=== PATIENT | female | born 1985 | race Hispanic/Latino ===

== ENCOUNTER 2019-07-04 09:00 | Inpatient (IN) | payer MEDICAID ==
[~2019-07-04] VITALS: Ht 149.9 cm; Wt 75.7 kg
[2019-07-09 09:27] LABS: HEMATOCRIT 36.8 % (36-48); MEAN CORPUSCULAR HEMOGLOBIN 29.6 pg (27.0-33.0); MEAN CORPUSCULAR HGB CONC 34.2 g/dL (32.0-36.0); MEAN CORPUSCULAR VOLUME 86.5 fL (79-99); PLATELET COUNT (AUTO) 183 K/uL (130-400); RED BLOOD CELL COUNT(AUTO) 4.25 MIL/uL (4.00-5.50); WHITE BLOOD COUNT (AUTO) 6.6 K/uL (4.8-10.8)
[2019-07-10] VITALS (12 sets, daily range): BP systolic 112–129; BP diastolic 62–86
[2019-07-10] MEDS ORDERED: LACTATED RINGERS 1000ML 1,000 ML IV SCH (05:45)
[2019-07-10] MEDS ORDERED: CEFAZOLIN SODIUM 1 GM VIAL IVP PRN (05:45)
[2019-07-10 06:10] LABS: HEPATITIS Bs ANTIGEN SCREEN P Negative (Negative)
[2019-07-10] MEDS ORDERED: PHENYLEPHRINE HCL 10 MG/ML 1ML VIAL IV ONE (08:06)
[2019-07-10] MEDS ORDERED: DURAMORPH PF1 MG/ML 10ML AMP IV ONE (08:06)
[2019-07-10] MEDS ORDERED: OXYTOCIN 10 USP UNITS/ML ONE ×3 (08:07→09:07)
[2019-07-10] MEDS ORDERED: SENSORCAINE/DEXT/PF 0.75% 2ML AMP IJ ONE (08:11)
[2019-07-10] MEDS ORDERED: CEFAZOLIN SODIUM 1 GM VIAL IVP ONE (08:15)
[2019-07-10] MEDS ORDERED: EPHEDRINE SULFATE 50 MG/ML AMPULE ONE (08:19)
[2019-07-10] MEDS ORDERED: ONDANSETRON HCL 4 MG/2 ML VIAL ONE ×2 (08:24→11:07)
[2019-07-10] MEDS ORDERED: DEXAMETHASONE SOD PHOSPHATE 10MG/ML 1ML VIAL ONE (08:32)
[2019-07-10] MEDS ORDERED: DEXAMETHASONE SOD PHOSPHATE 4 MG/ML 1ML VIAL ONE (08:41)
--- NOTE | 2019-07-10 09:20 | NUR ---
RECEIVED PT FROM L&D OR VIA BED. AWAKE, ALERT, AND ORIENTED X3. WILL MONITOR.
[2019-07-10] MEDS ORDERED: OXYTOCIN-LR 20 UNITS/1000 ML 1,000 ML IV PRN (09:30)
[2019-07-10] MEDS ORDERED: PROMETHAZINE HCL 25 MG/ML 1ML AMPULE IM PRN (09:30)
[2019-07-10] MEDS ORDERED: SODIUM CHLORIDE 0.9% 10 ML VIAL IVP PRN (09:30)
[2019-07-10] MEDS ORDERED: MEPERIDINE-PF 75 MG/ML SYG IM PRN (09:30)
[2019-07-10] MEDS ORDERED: PREN-154 PO (09:51)
[2019-07-10] MEDS: DEXTROSE 5 %-0.45 % NACL 1,000 ML IV PRN ×2 (13:49→21:05)
[2019-07-10] MEDS ORDERED: DiphenhydrAMINE HCL 50 MG/ML VIAL IVP PRN (17:00)
[2019-07-10] MEDS ORDERED: ONDANSETRON HCL 4 MG/2 ML VIAL IVP PRN (17:00)
[2019-07-10] MEDS ORDERED: NALOXONE HCL 0.4 MG/1 ML ML IVP PRN ×3 (17:00)
--- NOTE | 2019-07-10 20:20 | NUR ---
ACTIVITY ABD BINDER APPLIED, ASSISTED TO SIDE OF BED, DANGLED , TOLERATED WELL, TAKING CLEAR LIQUIDS WELL Addendum: 07/11/19 at 0030 by CANELO CAMP LVN Amended: Links added.
[2019-07-11 03:36] VITALS: BP 100/75
[2019-07-11] MEDS: DEXTROSE 5 %-0.45 % NACL 1,000 ML IV PRN (03:39)
--- NOTE | 2019-07-11 04:00 | NUR ---
COMFORT C/O GENERALIZED ITCHING, MEDICATED W/BENADRYL 25 MG SLOW IV PUSH Addendum: 07/11/19 at 0411 by CANELO CAMP LVN Amended: Links added.
--- NOTE | 2019-07-11 04:26 | NUR ---
COMFORT GENERALIZED ITCHING SOMEWHAT RELIEVED Addendum: 07/11/19 at 0428 by CANELO CAMP LVN Amended: Links added.
[2019-07-11 05:24] LABS: HEMATOCRIT 25.8 % (36-48); MEAN CORPUSCULAR HEMOGLOBIN 30.1 pg (27.0-33.0); MEAN CORPUSCULAR HGB CONC 34.6 g/dL (32.0-36.0); PLATELET COUNT (AUTO) 140 K/uL (130-400); RED BLOOD CELL COUNT(AUTO) 2.97 MIL/uL (4.00-5.50); RED CELL DISTRIBUTION WIDTH 15.1 % (11.0-15.5); WHITE BLOOD COUNT (AUTO) 7.6 K/uL (4.8-10.8)
--- NOTE | 2019-07-11 06:30 | NUR ---
POLLOCK CATHETER F/C REMOVED , INTACT, TOLERATED WELL, INSTRUCTED TO CALL NURSE WHEN SHE HAS URGE TO VOID Addendum: 07/11/19 at 0655 by CANELO CAMP LVN Amended: Links added.
[2019-07-11 08:05] VITALS: BP 98/61
[2019-07-11] MEDS: IBUPROFEN 800 MG TAB PO SCH ×2 (10:14→17:20)
[2019-07-11] MEDS ORDERED: HYDROCODONE/ACETAMINOPHEN 5/325 MG TAB PO PRN (10:30)
[2019-07-11] MEDS ORDERED: LANOLIN 30GM OINTMENT TP PRN ×2 (10:30)
[2019-07-11] MEDS ORDERED: ACETAMINOPHEN EXTRA STRENGTH 500 MG TABLET PO PRN (10:30)
[2019-07-11] MEDS ORDERED: ACETAMINOPHEN-CODEINE 300/30MG TAB PO PRN (10:30)
[2019-07-11] MEDS ORDERED: BISACODYL 10 MG SUPP.RECT RC PRN (10:30)
[2019-07-11 11:50] VITALS: BP 117/78
[2019-07-11 16:33] VITALS: BP 101/70
[2019-07-11] MEDS: SIMETHICONE 80 MG TAB.CHEW PO PRN ×2 (17:18→20:26)
[2019-07-11 19:29] VITALS: BP 107/60
--- NOTE | 2019-07-11 20:15 | NUR ---
INCISION INCISION HAS SUPERFICIAL GAPE TO LEFT LATERAL SIDE, 3 STERI STRIPS APPLIED, NO OOZING, CLEAN Addendum: 07/12/19 at 0312 by CANELO CAMP LVN Amended: Links added.
[2019-07-11] MEDS: DOCUSATE SODIUM 100 MG CAP PO SCH (20:25)
[2019-07-11 23:25] VITALS: BP 93/57
[2019-07-12] MEDS: IBUPROFEN 800 MG TAB PO SCH ×2 (01:55→09:04)
--- NOTE | 2019-07-12 03:20 | NUR ---
STATUS C/O CHILLS, TEMP 100.0 , ENCOURAGED TO PUSH FLUIDS , USE I S . ALSO VERBALIZED THAT SHE HAS BURNING SENSATION UPON URINATION. INSTRUCTED TO USE GRIS BOTTLE Addendum: 07/12/19 at 0552 by CANELO CAMP LVN Amended: Links added.
[2019-07-12 03:21] VITALS: BP 100/71
[2019-07-12 07:53] VITALS: BP 121/80
[2019-07-12] MEDS: SIMETHICONE 80 MG TAB.CHEW PO PRN (09:03)
[2019-07-12] MEDS: DOCUSATE SODIUM 100 MG CAP PO SCH (09:03)
[2019-07-12 11:22] VITALS: BP 117/76
--- NOTE | 2019-07-12 12:50 | NUR ---
INSTRUCTIONS DISCHARGE INSTRUCTIONS READ AND EXPLAINED TO PATIENT. PRESCRIPTION FOR TYLENOL #3 AND FERROUS SULFATE 325MG HANDED TO PATIENT. QUESTIONS INVITED AND ANSWERED. PATIENT VOICED UNDERSTANDING.
--- NOTE | 2019-07-12 14:05 | NUR ---
DISCHARGE PATIENT LEFT UNIT VIA WHEELCHAIR WITH BABY IN ARMS. PERSONAL VEHICLE USED FOR TRANSPORTATION. BABY SE CURE IN CARSEAT.
[2019-07-23] MEDS ORDERED: DOCU-275 PO (10:44)
[2019-07-23] MEDS ORDERED: IBUP-2077 PO (10:44)
== END 2019-07-12 14:05 | disposition home or self-care (01) | DRG 540 ==
LOC: LDH 07-10 05:32 → EDSTATUS 07-10 09:00 → WSH 07-10 10:45
PROVIDERS: ADMIT Specialist; ATTEND Specialist
PROC: 10D00Z1 Extraction of Products of Conception, Low, Open Approach (ICD-10-PCS; principal; 2019-07-10 07:30)
DX: O34.211 Maternal care for low transverse scar from previous cesarean delivery (principal); K66.0 Peritoneal adhesions (postprocedural) (postinfection); Z37.0 Single live birth; Z3A.39 39 weeks gestation of pregnancy
CPT/HCPCS: 36415; 59510; 85027; 86592; 86850; 86900; 86901; 87340; A4344; G0378; J0690; J1100; J1200; J2274; J2370; J2405; J2590; J3490; J7120

== ENCOUNTER 2019-07-13 21:01 | Observation (INO) | payer MEDICAID ==
[~2019-07-13] VITALS: Ht 149.9 cm; Wt 74.4 kg
[~2019-07-13 21:01] MED LIST: PREN-154 PO
[2019-07-13 21:34] LABS: BASOPHILS % (AUTO) 0.2 % (0.0-5.0); EOSINOPHILS % (AUTO) 0.4 % (0.0-8.0); HEMATOCRIT 29.4 % (36-48); LYMPHOCYTES % (AUTO) 11.2 % (21.0-51.0); MEAN CORPUSCULAR HEMOGLOBIN 29.8 pg (27.0-33.0); MEAN CORPUSCULAR HGB CONC 34.5 g/dL (32.0-36.0); MEAN CORPUSCULAR VOLUME 86.2 fL (79-99); MONOCYTES % (AUTO) 4.2 % (3.0-13.0); NUCLEATED RED BLOOD CELLS 0.1 % (0.0-0.19); PLATELET COUNT (AUTO) 203 K/uL (130-400); RED BLOOD CELL COUNT(AUTO) 3.41 MIL/uL (4.00-5.50); RED CELL DISTRIBUTION WIDTH 15.3 % (11.0-15.5); WHITE BLOOD COUNT (AUTO) 5.2 K/uL (4.8-10.8)
[2019-07-13 21:36] LABS: APPEARANCE,URINE Clear (CLEAR); BILIRUBIN,URINE Negative (NEGATIVE); COLOR,URINE Yellow (YELLOW); GLUCOSE, URINE (UA) Negative (NEGATIVE); KETONES,URINE Negative (NEGATIVE); LEUKOCYTE ESTERASE ,URINE Trace (NEGATIVE); NITRATE,URINE Negative (NEGATIVE); OCCULT BLOOD,URINE Moderate (NEGATIVE); PROTEIN,URINE Negative (NEGATIVE)
[2019-07-13 21:40] LABS: INR 0.87 (0.85-1.15); PARTIAL THROMBOPLASTIN TIME 29.8 SEC (26.3-35.5); PROTHROMBIN TIME 9.2 SEC (9.6-11.6)
[2019-07-13 21:45] LABS: BACTERIA,URINE Few /HPF (None Seen); MUCUS,URINE Few LPF (None Seen)
[2019-07-13] MEDS ORDERED: ZOSYN 3.375GM+NS 50ML 50 ML IV ONE (21:46)
[2019-07-13] MEDS ORDERED: SODIUM CHLORIDE 0.9% 1000ML 2,000 ML IV ONE (21:47)
[2019-07-13 21:49] LABS: CARBON DIOXIDE 27 mmol/L (21-32); CHLORIDE 100 mmol/L (101-111); CREATININE 0.8 mg/dL (0.5-1.5); GLOMERULAR FILTR. RATE CALC 88 mL/min (>60); GLUCOSE,RANDOM 90 mg/dL (70-105); POTASSIUM 3.6 mmol/L (3.5-5.1); SODIUM SERUM 134 mmol/L (136-145); UREA NITROGEN, BLOOD 9 mg/dL (7-18)
[2019-07-13 22:03] LABS: ALANINE AMINOTRANSFERASE 37 U/L (12-78); ALBUMIN 2.6 g/dL (3.5-5.0); ASPARTATE AMINOTRANSFERASE 41 U/L (10-37); BILIRUBIN,TOTAL 0.4 mg/dL (0.2-1.0); CREATINE KINASE, TOTAL 209 U/L (21-232); MYOGLOBIN 34 ng/mL (10-92); TOTAL PROTEIN, SERUM 6.8 g/dL (6.0-8.3); TROPONIN I < 0.04 ng/mL (0.00-0.06)
[2019-07-13] MEDS ORDERED: ACETAMINOPHEN 650 MG SUPPOSITORY RC ONE (22:03)
[2019-07-13] MEDS ORDERED: IBUPROFEN 800 MG TAB PO PRN (23:00)
[2019-07-13] MEDS: GENTAMICIN 120 MG IN 100ML NS 100 ML IV SCH (23:00)
[2019-07-13] MEDS ORDERED: ACETAMINOPHEN-CODEINE 300/30MG TAB PO PRN (23:15)
[2019-07-13] MEDS ORDERED: PROMETHAZINE HCL 25 MG/ML 1ML AMPULE IM PRN (23:15)
[2019-07-13] MEDS ORDERED: MEPERIDINE-PF 50 MG/ML SYG IM PRN (23:15)
[2019-07-14] MEDS ORDERED: IBUPROFEN 800 MG TAB ONE (02:02)
[2019-07-14 03:11] VITALS: BP 122/76
[2019-07-14] MEDS ORDERED: FERR-82 PO (03:14)
[2019-07-14] MEDS ORDERED: GENTAMICIN SULFATE 80 MG/2 ML VIAL ONE (03:59)
[2019-07-14] MEDS: GENTAMICIN 120 MG IN 100ML NS 100 ML IV SCH (04:00)
[2019-07-14] MEDS ORDERED: SODIUM CHLORIDE 0.9% 100 ML IV ONE (04:00)
[2019-07-14] MEDS ORDERED: CLINDAMYCIN 900 MG/D5% WATER 50 ML IV ONE (05:33)
[2019-07-14] MEDS: CLINDAMYCIN IN 0.9 % SOD CHLOR 50 ML IV SCH ×2 (05:41→05:45)
[2019-07-14] MEDS ORDERED: GENTAMICIN 80 MG/NS 100 ML PB 100 ML IV SCH (06:00)
[2019-07-14 07:28] VITALS: BP 133/90
--- NOTE | 2019-07-14 09:00 | NUR ---
DR. GARRIDO ROUNDED AND DISCHARGED PATIENT TO HOME. PATIENT STABLE AND DENIES ANY PROBLEMS. INDICATED TO DOCTOR OF HAVING A FOLLOW UP APPOINTMENT WITH DR. PINEDA ON 07/18/19. PATIENT TO KEEP FOLLOW UP APPOINTMENT AND BE DISCHARGED WITH SCRIPT FOR JAIRON.
--- NOTE | 2019-07-14 11:00 | NUR ---
MEDICATED WITH MOTRIN FOR MILD DISCOMFORT AND WAS GIVEN DISCHARGE INSTRUCTIONS AT THIS TIME. PATIENT HAD CARE OF INCISION REINFORCED AND IMPORTANCE OF OR PUMPING BREAST IF BABY AND IF NOT TO APPLY A TIGHT SPORTS BRA AND APPLY COLD COMPRESSES TO BREAST AND AVOID ANY STIMULATION.
--- NOTE | 2019-07-14 11:30 | NUR ---
PATIENT WAS TAKEN VIA W/C TO FAMILY VEHICLE AND WAS DISCHARGED TO HER SPOUSE. PATIENT STABLE AND DENIES PAIN. MOTRIN ADMINISTERED PRIOR TO DISCHARGE.
[2019-07-14] MEDS ORDERED: CLINDAMYCIN 900 MG/D5% WATER 50 ML IV SCH (14:00)
[2019-07-23] MEDS ORDERED: IBUP-2077 PO (10:44)
[2019-07-23] MEDS ORDERED: DOCU-275 PO (10:44)
== END 2019-07-14 11:30 | disposition home or self-care (01) ==
LOC: EDH 21:01 → EDHIP 21:02 → WSH 07-14 02:56
PROVIDERS: ADMIT Obstetrics & Gynecology; ATTEND Obstetrics & Gynecology
DX: R50.9 Fever, unspecified (principal); R00.0 Tachycardia, unspecified; Z90.49 Acquired absence of other specified parts of digestive tract
CPT/HCPCS: 36415; 71045; 80053; 81001; 82550; 83605; 83874; 84145; 84484; 85025; 85610; 85730; 87040 ×2; 87088; 93005; 96365; 99284; G0378 ×8; J1580 ×3; J2543; J3490; J7030

== ENCOUNTER 2019-07-25 06:18 | Day surgery (SDC) | payer MEDICAID ==
[2019-07-23 09:44] LABS: BASOPHILS % (AUTO) 0.9 % (0.0-5.0); EOSINOPHILS % (AUTO) 1.8 % (0.0-8.0); HEMATOCRIT 33.4 % (36-48); LYMPHOCYTES % (AUTO) 29.1 % (21.0-51.0); MEAN CORPUSCULAR HEMOGLOBIN 28.3 pg (27.0-33.0); MEAN CORPUSCULAR HGB CONC 32.9 g/dL (32.0-36.0); MEAN CORPUSCULAR VOLUME 86.1 fL (79-99); MONOCYTES % (AUTO) 6.2 % (3.0-13.0); PLATELET COUNT (AUTO) 320 K/uL (130-400); RED BLOOD CELL COUNT(AUTO) 3.87 MIL/uL (4.00-5.50); RED CELL DISTRIBUTION WIDTH 14.8 % (11.0-15.5); WHITE BLOOD COUNT (AUTO) 4.4 K/uL (4.8-10.8)
[2019-07-23 10:04] VITALS: BP 172/79
[2019-07-23 10:09] LABS: ALBUMIN 3.1 g/dL (3.5-5.0); BILIRUBIN,TOTAL 0.2 mg/dL (0.2-1.0); CREATININE 0.7 mg/dL (0.5-1.5); TOTAL PROTEIN, SERUM 6.9 g/dL (6.0-8.3)
[2019-07-25] VITALS (21 sets, daily range): BP systolic 124–182; BP diastolic 70–90
[~2019-07-25] VITALS: Ht 149.9 cm; Wt 69.3 kg
[~2019-07-25 06:18] MED LIST changes: +DOCU-275 PO; +FERR-82 PO; +IBUP-2077 PO; -PREN-154 PO
[2019-07-25] MEDS ORDERED: LACTATED RINGERS 1000ML 1,000 ML IV ONE (07:14)
--- NOTE | 2019-07-25 07:25 | NUR ---
CARDIOVASCULAR: NOTIFIED DR. BETANCOURT ANESTHESIOLOGIST OF HEART RATE 44 AND PATIENT STATING NOT ATHLETIC. PLACED PATIENT ON POLISHER DIAL AND VIEWED EKG RHYTHM. OK TO PROCEED WITH SURGERY AND STATED WILL TALK TO DR. CHAVEZ REGARDING POSTOPERATIVE CARE.
[2019-07-25] MEDS ORDERED: LIDOCAINE PF 2% 5ML ABBOJECT ONE ×2 (07:27→07:28)
[2019-07-25] MEDS ORDERED: PROPOFOL 10 MG/ML 20ML VIAL IV ONE (07:27)
[2019-07-25] MEDS ORDERED: NEOSTIGMINE 5MG/5ML SYR IV ONE (07:27)
[2019-07-25] MEDS ORDERED: ROCURONIUM 10MG/1ML SYR 10 MG/ML ML ONE (07:27)
[2019-07-25] MEDS ORDERED: MIDAZOLAM HCL 1 MG/ML 2ML VIAL ONE (07:27)
[2019-07-25] MEDS ORDERED: SUCCINYLCHOLINE 200MG/10ML SYR ONE ×2 (07:27→07:53)
[2019-07-25] MEDS ORDERED: GLYCOPYRROLATE 1 MG/5 ML SYRINGE ONE ×2 (07:27→08:17)
[2019-07-25] MEDS ORDERED: ONDANSETRON HCL 4 MG/2 ML VIAL ONE (07:27)
[2019-07-25] MEDS ORDERED: DEXAMETHASONE SOD PHOSPHATE 10MG/ML 1ML VIAL ONE (07:27)
[2019-07-25] MEDS ORDERED: FENTANYL CITRATE PF 50 MCG/1 ML 2ML VIAL ONE ×2 (07:28→08:12)
[2019-07-25] MEDS ORDERED: LIDOCAINE HCL 1% 20 ML VIAL ONE (07:29)
[2019-07-25] MEDS ORDERED: BUPIVACAINE/PF 0.5% 30ML VIAL ONE (07:29)
--- NOTE | 2019-07-25 07:30 | NUR ---
CARDIOVASCULAR: DR. BETANCOURT WITH PATIENT AND TREATING HEART RATE WITH ATROPINE IV, CONTINUED TO MONITOR HEART RATE.
--- NOTE | 2019-07-25 07:45 | NUR ---
CARDIOVASCULAR: HEART RATE INCREASED TO 70. DR. CHAVEZ NOTIFIED OF PATIENTS HEART RATE 44 AND TREATMENT TO INCREASE HEART RATE. DR. CHAVEZ WILL HAVE PATIENT SEE AUTOMATIC VULCANIZING LEAD OPERATOR POSTOP
[2019-07-25] MEDS ORDERED: CEFAZOLIN SODIUM 1 GM VIAL ONE (07:49)
--- NOTE | 2019-07-25 09:50 | NUR ---
ASSESSMENT RECEIVED PT FROM Frank HUDSON RN. PT [id number]. DRSG TO LEFT SHOULDER DRY AND INTACT. NO BLEEDING, OOZING NOTED TO SITE. / MOM AT BEDSIDE.
--- NOTE | 2019-07-25 10:50 | NUR ---
DISCHARGE ORAL AND WRITTEN DISCHARGE INSTRUCTIONS GIVEN TO PT AND PTS ALONG WITH PRESCRIPTION FOR TRAMADOL. INSTRUCTED ON IMPORTANCE OF NOT BREAST FEEDING FOR 24 HOURS. EDUCATED ON PUMPING AND DUMPING BREAST MILK FOR 24 HOURS. STATES HAS BREAST MILK ON STANDBY. EDUCATED ON USING TRAMADOL ONLY FOR TODAY AND USING TYLENOL FOR PAIN USE AFTER. VERBALIZED UNDERSTANDING. ICE PACK GIVEN TO PT FOR HOME USE.
== END 2019-07-25 11:10 | disposition home or self-care (01) ==
LOC: DAH 06:18
PROVIDERS: ATTEND Student in an Organized Health Care Education/Training Program
DX: D17.0 Benign lipomatous neoplasm of skin and subcutaneous tissue of head, face and neck (principal); I10 Essential (primary) hypertension; Z90.49 Acquired absence of other specified parts of digestive tract
CPT/HCPCS: 21552; 36415; 80053; 84703; 85025; 88304; A4215; A4221; A4222; A4223; A4450; A4452; A4663; A4930; A6260; J0330 ×2; J0690; J1100; J2001 ×2; J2250; J2405; J2704; J2710; J3010 ×2; J3490 ×3; J7120

== ENCOUNTER 2019-08-08 09:50 | Emergency (ER) | payer MEDICAID ==
[2019-08-08 10:23] LABS: BASOPHILS % (AUTO) 0.8 % (0.0-5.0); EOSINOPHILS % (AUTO) 2.8 % (0.0-8.0); HEMATOCRIT 37.5 % (36-48); LYMPHOCYTES % (AUTO) 36.5 % (21.0-51.0); MEAN CORPUSCULAR HEMOGLOBIN 28.5 pg (27.0-33.0); MEAN CORPUSCULAR HGB CONC 34.1 g/dL (32.0-36.0); MEAN CORPUSCULAR VOLUME 83.7 fL (79-99); MONOCYTES % (AUTO) 8.2 % (3.0-13.0); NEUTROPHILS % (AUTO) 51.7 % (40.0-77.0); NUCLEATED RED BLOOD CELLS 0.1 % (0.0-0.19); PLATELET COUNT (AUTO) 189 K/uL (130-400); RED BLOOD CELL COUNT(AUTO) 4.48 MIL/uL (4.00-5.50); RED CELL DISTRIBUTION WIDTH 14.1 % (11.0-15.5); WHITE BLOOD COUNT (AUTO) 3.9 K/uL (4.8-10.8)
[2019-08-08 10:29] LABS: CREATININE 0.7 mg/dL (0.5-1.5); POTASSIUM 3.8 mmol/L (3.5-5.1)
[2019-08-08 10:33] LABS: ALBUMIN 3.8 g/dL (3.5-5.0); BILIRUBIN,TOTAL 0.3 mg/dL (0.2-1.0); TOTAL PROTEIN, SERUM 7.3 g/dL (6.0-8.3)
[2019-08-08] MEDS ORDERED: HYDRALAZINE HCL 20 MG/ML VIAL ONE ×2 (11:05→12:46)
[2019-08-08 11:24] LABS: AMPHET/METH SCREEN,URINE NEGATIVE (NEGATIVE); BARBITURATE SCREEN, URINE NEGATIVE (NEGATIVE); BENZODIAZEPINES SCREEN,URINE NEGATIVE (NEGATIVE); CANNABINOID SCREEN,URINE NEGATIVE (NEGATIVE); COCAINE SCREEN,URINE NEGATIVE (NEGATIVE); OPIATE SCREEN,URINE NEGATIVE (NEGATIVE); PHENCYCLIDINE SCREEN,URINE NEGATIVE (NEGATIVE)
[2019-08-08 11:27] LABS: APPEARANCE,URINE Clear (CLEAR); BILIRUBIN,URINE Negative (NEGATIVE); COLOR,URINE Yellow (YELLOW); GLUCOSE, URINE (UA) Negative (NEGATIVE); KETONES,URINE Negative (NEGATIVE); LEUKOCYTE ESTERASE ,URINE Trace (NEGATIVE); NITRATE,URINE Negative (NEGATIVE); OCCULT BLOOD,URINE Negative (NEGATIVE); PH,URINE 6.5 (5.0-8.0); PROTEIN,URINE Negative (NEGATIVE); UROBILINOGEN,URINE 0.2 mg/dL (0.2-1.0)
[2019-08-08 12:31] LABS: BACTERIA,URINE Rare /HPF (None Seen); RBC,URINE 0-1 /HPF (0-1); SQUAMOUS EPITHELIAL CELL,UR Rare /HPF (0-2)
== END 2019-08-08 12:52 | disposition home or self-care (01) ==
LOC: EDH 09:50
DX: O13.5 Gestational [pregnancy-induced] hypertension without significant proteinuria, complicating the puerperium (principal); Z90.49 Acquired absence of other specified parts of digestive tract; Z98.890 Other specified postprocedural states
CPT/HCPCS: 36415; 80053; 80305; 81001; 85025; 99284; J0360 ×2